=== PATIENT | female | born 1975 | race Caucasian/White ===

== ENCOUNTER 2019-02-06 09:38 | Emergency (ER) | payer MEDICAID ==
[~2019-02-06] VITALS: Ht 157.5 cm; Wt 66.2 kg
[2019-02-06 09:59] VITALS: Ht 157.5 cm; Wt 66.2 kg
[2019-02-06 11:54] LABS: CALCIUM 8.7 mg/dL (8.5-10.1); CARBON DIOXIDE 30.9 mmol/L (21-32); CHLORIDE SERUM 100 mmol/L (98-107); CREATININE SERUM 0.5 mg/dL (0.6-1.0); GFR1 > 60 mL/min; GLUCOSE SERUM 102 mg/dL (74-106); POTASSIUM SERUM 4.1 mmol/L (3.5-5.1); SODIUM SERUM 136 mmol/L (136-145)
[2019-02-06 11:55] LABS: BASOPHIL % 0.4 % (0-2); PLATELET COUNT 184 x10^3mcL (130-400); RED CELL DISTRIBUTION WIDTH 13.8 % (11.5-14.5)
[2019-02-06 12:05] LABS: ALBUMIN 3.9 g/dL (3.4-5.0); ALKALINE PHOSPHATASE 90 U/L (46-116); ALT/SGPT 64 U/L (14-59); AST/SGOT 25 U/L (15-37); BILIRUBIN TOTAL 0.48 mg/dL (0.20-1.00); CHOLESTEROL 159 mg/dL (<200); HDL CHOLESTEROL 45 mg/dL (40-60); LIPASE 111 IU/L (73-393); T4(THYROXINE) 7.2 ug/dL (4.7-13.3); TOTAL PROTEIN, SERUM 8.2 g/dL (6.4-8.2)
[2019-02-06 13:48] LABS: UA SPECIFIC GRAVITY 1.015 (1.005-1.035); microscopic required? YES; urine erythrocyte NEGATIVE (NEGATIVE)
[2019-02-06 13:50] LABS: AMPHETAMINE QUAL UR NONE DETECTED (See below)
[2019-02-06 14:40] VITALS: BP 132/76
== END 2019-02-06 14:40 | disposition home or self-care (01) ==
LOC: ED 09:38
PROVIDERS: Emergency Medicine
DX: R07.89 Other chest pain (principal); R05 Cough
CPT/HCPCS: 36415; 83880; J7510; J7613; J7644

== ENCOUNTER 2019-02-07 20:21 | Emergency (ER) | payer MEDICAID ==
[~2019-02-07] VITALS: Ht 157.5 cm; Wt 66.9 kg
[2019-02-07 20:36] VITALS: Ht 157.5 cm; Wt 66.9 kg
[2019-02-07 22:37] VITALS: BP 117/80
== END 2019-02-07 22:37 | disposition home or self-care (01) ==
LOC: ED 20:21
DX: J98.01 Acute bronchospasm (principal); J02.9 Acute pharyngitis, unspecified; R07.89 Other chest pain; Z20.828 Contact with and (suspected) exposure to other viral communicable diseases

== ENCOUNTER 2019-09-16 21:44 | Emergency (ER) | payer MEDICAID ==
[~2019-09-16] VITALS: Ht 157.5 cm; Wt 65.8 kg
[2019-09-16 22:00] VITALS: Ht 157.5 cm; Wt 65.8 kg
[2019-09-16 22:58] VITALS: BP 128/81
== END 2019-09-16 22:58 | disposition home or self-care (01) ==
LOC: ED 21:44
DX: S60.132A Contusion of left middle finger with damage to nail, initial encounter (principal); W22.8XXA Striking against or struck by other objects, initial encounter; Y93.89 Activity, other specified; Y92.89 Other specified places as the place of occurrence of the external cause; Y99.8 Other external cause status
CPT/HCPCS: Q0092

== ENCOUNTER 2019-12-01 20:02 | Emergency (ER) | payer MEDICAID ==
[~2019-12-01] VITALS: Ht 157.5 cm; Wt 63.5 kg
[2019-12-01 20:16] VITALS: Ht 157.5 cm; Wt 63.5 kg
[2019-12-01 22:15] VITALS: BP 117/74
== END 2019-12-01 22:15 | disposition home or self-care (01) ==
LOC: ED 20:02
DX: J02.9 Acute pharyngitis, unspecified (principal); E03.9 Hypothyroidism, unspecified
CPT/HCPCS: J0696; J1885